=== PATIENT | female | born 2000 ===

== ENCOUNTER 2023-09-21 06:38 | Day surgery (SDC) | payer BC, SELFPAY ==
--- NOTE | 2023-09-18 09:19 | PTCARENOTE ---
Janet in Dr Lazcano's office made aware pt did not show for her CT scan yesterday. Per Janet, Dr. Lazcano said it's ok to proceed.
[2023-09-21] VITALS (9 sets, daily range): BP systolic 97–138; BP diastolic 49–96; BMI 26.9
[2023-09-21] MEDS: Pyridium 200 MG PO (13:05)
[2023-09-21 13:08] LABS: HCG, Urine Qualitative Screen Negative
[2023-09-21] MEDS: NORMOSOL-R 1000 IV (13:10)
[2023-09-21] MEDS: SUBLIMAZE 25 MCG IV ×2 (14:50→15:12)
== END 2023-09-21 16:13 | disposition home or self-care (01) ==
LOC: SDS 06:38
PROVIDERS: ATTENDING PHYSICIAN Surgery
DX: R33.9 Retention of urine, unspecified (principal); M62.89 Other specified disorders of muscle; R39.15 Urgency of urination
CPT/HCPCS: 51040; 81025

== ENCOUNTER 2023-10-30 06:11 | Day surgery (SDC) | payer BC, SELFPAY ==
[2023-10-30] VITALS (11 sets, daily range): BP systolic 101–131; BP diastolic 59–92; BMI 25.7
[2023-10-30] MEDS: NORMOSOL-R 1000 IV (10:19)
[2023-10-30] MEDS: DILAUDID 0.25 MG IV (12:30)
== END 2023-10-30 13:25 | disposition home or self-care (01) ==
LOC: SDS 06:11
PROVIDERS: ATTENDING PHYSICIAN Surgery
DX: M99.05 Segmental and somatic dysfunction of pelvic region (principal); Z87.448 Personal history of other diseases of urinary system; Z98.890 Other specified postprocedural states
CPT/HCPCS: 51705

== ENCOUNTER 2023-12-25 10:08 | Outpatient (RCR) | payer BC, SELFPAY | END 2023-12-25 23:59 | disposition home or self-care (01) | LOC: RPT 10:08 | PROVIDERS: ATTENDING PHYSICIAN Urology; FAMILY PHYSICIAN Pediatrics | DX: R33.9 Retention of urine, unspecified (principal); M62.89 Other specified disorders of muscle; Z73.6 Limitation of activities due to disability; R27.8 Other lack of coordination; M62.838 Other muscle spasm | CPT/HCPCS: 97140; 97163; 97530 ==

== ENCOUNTER 2024-01-29 12:00 | Outpatient (RCR) | payer BC, SELFPAY | END 2024-01-29 23:59 | disposition home or self-care (01) | LOC: RPT 12:00 | PROVIDERS: ATTENDING PHYSICIAN Urology; FAMILY PHYSICIAN Pediatrics | DX: R33.9 Retention of urine, unspecified (principal); M62.89 Other specified disorders of muscle; Z73.6 Limitation of activities due to disability; R27.8 Other lack of coordination; M62.838 Other muscle spasm | CPT/HCPCS: 97530 ==

== ENCOUNTER 2024-02-19 10:04 | Outpatient (RCR) | payer BC, SELFPAY | END 2024-02-19 23:59 | disposition home or self-care (01) | LOC: RPT 10:04 | PROVIDERS: ATTENDING PHYSICIAN Urology; FAMILY PHYSICIAN Pediatrics | DX: R33.9 Retention of urine, unspecified (principal); M62.89 Other specified disorders of muscle; Z73.6 Limitation of activities due to disability; R27.8 Other lack of coordination; M62.838 Other muscle spasm | CPT/HCPCS: 97140; 97530 ==

== ENCOUNTER 2024-04-01 10:43 | Outpatient (RCR) | payer BC, SELFPAY | END 2024-04-01 23:59 | disposition home or self-care (01) | LOC: RPT 10:43 | PROVIDERS: ATTENDING PHYSICIAN Urology; FAMILY PHYSICIAN Pediatrics | DX: R33.9 Retention of urine, unspecified (principal); M62.89 Other specified disorders of muscle; Z73.6 Limitation of activities due to disability; R27.8 Other lack of coordination; M62.838 Other muscle spasm | CPT/HCPCS: 97014; 97140; 97530 ==

== ENCOUNTER 2024-05-06 11:00 | Outpatient (RCR) | payer BC, SELFPAY | END 2024-05-06 23:59 | disposition home or self-care (01) | LOC: RPT 11:00 | PROVIDERS: ATTENDING PHYSICIAN Urology; FAMILY PHYSICIAN Pediatrics | DX: R33.9 Retention of urine, unspecified (principal); M62.89 Other specified disorders of muscle; Z73.6 Limitation of activities due to disability; R27.8 Other lack of coordination; M62.838 Other muscle spasm; R39.15 Urgency of urination | CPT/HCPCS: 97014; 97140; 97530 ==

== ENCOUNTER 2024-06-03 13:44 | Outpatient (RCR) | payer BC, SELFPAY | END 2024-06-03 23:59 | disposition home or self-care (01) | LOC: RPT 13:44 | PROVIDERS: ATTENDING PHYSICIAN Urology; FAMILY PHYSICIAN Pediatrics | DX: R33.9 Retention of urine, unspecified (principal); M62.89 Other specified disorders of muscle; Z73.6 Limitation of activities due to disability; R27.8 Other lack of coordination; M62.838 Other muscle spasm; R39.15 Urgency of urination | CPT/HCPCS: 97112; 97140; 97530 ==

== ENCOUNTER 2024-06-09 14:09 | Outpatient (RCR) | payer BC, SELFPAY | END 2024-06-09 23:59 | disposition home or self-care (01) | LOC: RPT 14:09 | PROVIDERS: ATTENDING PHYSICIAN Urology; FAMILY PHYSICIAN Pediatrics | DX: R33.9 Retention of urine, unspecified (principal); M62.89 Other specified disorders of muscle; Z73.6 Limitation of activities due to disability; R27.8 Other lack of coordination; M62.838 Other muscle spasm; R39.15 Urgency of urination | CPT/HCPCS: 97014; 97530 ==

== ENCOUNTER 2024-07-15 09:16 | Outpatient (RCR) | payer BC, SELFPAY | END 2024-07-15 23:59 | disposition home or self-care (01) | LOC: RPT 09:16 | PROVIDERS: ATTENDING PHYSICIAN Urology; FAMILY PHYSICIAN Pediatrics | DX: R33.9 Retention of urine, unspecified (principal); M62.89 Other specified disorders of muscle; Z73.6 Limitation of activities due to disability; R27.8 Other lack of coordination; M62.838 Other muscle spasm; R39.15 Urgency of urination | CPT/HCPCS: 97110; 97140; 97530 ==

== ENCOUNTER 2024-08-26 06:50 | Outpatient (RCR) | payer BC, SELFPAY | END 2024-08-26 23:59 | disposition home or self-care (01) | LOC: RPT 06:50 | PROVIDERS: ATTENDING PHYSICIAN Urology; FAMILY PHYSICIAN Pediatrics | DX: R33.9 Retention of urine, unspecified (principal); M62.89 Other specified disorders of muscle; R27.8 Other lack of coordination; M62.838 Other muscle spasm; R39.15 Urgency of urination; Z73.6 Limitation of activities due to disability | CPT/HCPCS: 97110; 97530 ==

== ENCOUNTER 2024-09-30 13:33 | Outpatient (RCR) | payer BC, SELFPAY | END 2024-09-30 23:59 | disposition home or self-care (01) | LOC: RPT 13:33 | PROVIDERS: ATTENDING PHYSICIAN Urology; FAMILY PHYSICIAN Pediatrics | DX: R33.9 Retention of urine, unspecified (principal); M62.89 Other specified disorders of muscle; R27.8 Other lack of coordination; M62.838 Other muscle spasm; R39.15 Urgency of urination; Z73.6 Limitation of activities due to disability | CPT/HCPCS: 97530 ==

== ENCOUNTER 2024-11-18 13:54 | Outpatient (RCR) | payer BC, SELFPAY | END 2024-11-18 23:59 | disposition home or self-care (01) | LOC: RPT 13:54 | PROVIDERS: ATTENDING PHYSICIAN Urology; FAMILY PHYSICIAN Pediatrics | DX: R33.9 Retention of urine, unspecified (principal); M62.89 Other specified disorders of muscle; R27.8 Other lack of coordination; M62.838 Other muscle spasm; R39.15 Urgency of urination; Z73.6 Limitation of activities due to disability | CPT/HCPCS: 97014; 97112; 97530 ==

== ENCOUNTER 2024-12-23 14:37 | Outpatient (RCR) | payer BC, SELFPAY | END 2024-12-23 23:59 | disposition home or self-care (01) | LOC: RPT 14:37 | PROVIDERS: ATTENDING PHYSICIAN Urology; FAMILY PHYSICIAN Pediatrics | DX: R33.9 Retention of urine, unspecified (principal); M62.89 Other specified disorders of muscle; R27.8 Other lack of coordination; M62.838 Other muscle spasm; R39.15 Urgency of urination; Z73.6 Limitation of activities due to disability | CPT/HCPCS: 97014; 97112; 97530 ==

== ENCOUNTER 2025-02-08 11:40 | Outpatient (RCR) | payer BC, SELFPAY | END 2025-02-08 23:59 | disposition home or self-care (01) | LOC: RPT 11:40 | PROVIDERS: ATTENDING PHYSICIAN Urology; FAMILY PHYSICIAN Pediatrics | DX: R33.9 Retention of urine, unspecified (principal); M62.89 Other specified disorders of muscle; R27.8 Other lack of coordination; M62.838 Other muscle spasm; R39.15 Urgency of urination; Z73.6 Limitation of activities due to disability | CPT/HCPCS: 97014; 97530 ==

== ENCOUNTER 2025-03-31 07:21 | Outpatient (RCR) | payer BC, SELFPAY | END 2025-03-31 23:59 | disposition home or self-care (01) | LOC: RPT 07:21 | PROVIDERS: ATTENDING PHYSICIAN Urology; FAMILY PHYSICIAN Pediatrics | DX: R33.9 Retention of urine, unspecified (principal); M62.89 Other specified disorders of muscle; R27.8 Other lack of coordination; M62.838 Other muscle spasm; R39.15 Urgency of urination; Z73.6 Limitation of activities due to disability | CPT/HCPCS: 97110; 97140; 97530 ==